=== PATIENT | male | born 1990 | race Two or more races ===

== ENCOUNTER 2017-01-22 03:04 | Emergency (ER) | payer SELFPAY ==
[2017-01-22] MEDS ORDERED: NO MEDICATIONS (03:18)
== END 2017-01-22 04:45 | disposition home or self-care (01) ==
LOC: SED 03:04
DX: R21 Rash and other nonspecific skin eruption (principal); Z90.49 Acquired absence of other specified parts of digestive tract; Z88.0 Allergy status to penicillin
CPT/HCPCS: 99282